=== PATIENT | male | born 1970 | race Caucasian/White ===

== ENCOUNTER 2016-11-29 17:27 | Emergency (ER) | payer MEDICAID ==
[~2016-11-29] VITALS: Ht 177.8 cm; Wt 81.6 kg
[~2016-11-29 17:27] MED LIST: CIPRO 500MG TA500 MG PO; KEFLEX 500MG.500 MG PO; NOMEDS; PROTONIX 40MG T40 MG PO; PYRIDIUM 200MG200 MG PO; ULTRAM 50 MG TA50 MG PO
--- NOTE | 2016-11-29 17:48 | Urgent Treatment Center Report ---
History of Present Issue Date/Time Seen by Provider 11/29/163 Visit Reason Pt arrived:Walked Presenting Problem:PT STATES HE WAS RIDING A HOVERBOARD WHEN HE FELL OFF AND INJURED HIS L WRIST. STATES HAPPENED APPROX 1530 TODAY Location if Accident:Home Onset of symptoms date/time:11/29/16 or onset unknown for: Have you (or family members/close friends) recently traveled outside the [place]? N If Yes, where/when: Have you had exposure to infectious disease within the past month? TB? Other? Specify: Patient states that he was trying to ride a hoverboard when he fell and landed on left wrist area. States that he has been having pain in left wrist ever since. State that it hurts when he moves his hand. Accident happened around 1500 -1530 today and state that pain in wrist area has been consistant ever since. Used ice on it at home but not much relief ALLERGIES Coded Allergies: No Known Allergies (11/29/16) Home Medications Reported Medications No Home Medications (NO HOME MEDICATIONS) History Medical History General CAD? No Angina: No [place]: No Hypertension? No Hyperlipidemia? No CHF? No DVT? No PE? No COPD? No Asthma? No Anemia? No GERD? No Gastric ulcers? Yes GI Bleed? No Hernia? No Thyroid Problems? No Hypothyroidism? No CVA? No Seizures? No Diabetes? No Renal Insuffiency? No UTI? No Stones? No BPH? No GB Disease: No Nephritic Syndrome? No Asplenia? No Hepatitis? No Sickle Cell Disease? No Arthritis? No Migraines? No Cataracts? No Glaucoma? No MRSA? No HIV? No TB? No Anxiety? No Depression? No Cancer? No Immunization HX DT/Tetanus 1-4 Years Ago Flu REFUSES Pneumonia REFUSES Surgical Hx Previous Surgery?Y SAMIRA. EYES Family History Family HX Diabetes No CAD No Hypertension No Hyperlipidemia No Cancer No TB No Social History Smoking Hx Smoker: Current Every Day Smoker Tobacco: Yes Type Cigarettes Packs/day 1 1/2 - 2 Packs Alcohol Alcohol: No Review of Systems All Other Systems Reviewed and Negative Comment Pain and swelling in left wrist after falling off hoverboard around 5894-9012 pm today. Physical Exam Vital Signs Vital Signs Date Time Temp Pulse Resp B/P Pulse O2 O2 Flow FiO2 Ox Delivery Rate 11/29 1737 97.9 74 20 126/84 98 General Appearance normal appearance, WD/WN, no apparent distress, mild distress Respiratory Status Yes: trachea midline, chest symmetrical, non tender chest. No: respiratory distress. Cardiovascular normal exam, regular rate/rhythm, no peripheral edema, no gallop Extremities normal capillary refill, swelling, Abrasions noted to left forearm, slight swelling to left wrist area, ice pack in place on wrist, good peripheral pulses no discoloration noted Neurologic alert, certified welder II-XII nml as tested, normal exam, no motor/sensory deficits, oriented x 3 Comments Patient complaining of pain in left wrist after falling off hoverboard, able to move fingers, denies numbness, pain with movement, abrasions on left forearm area, denies any other injury obtained in the fall Medical Decision Making LABS/Meds/Orders Pt receiving controlled substance in ED? No Results/Orders Orders Procedure Date/time Status WRIST-3 VIEWS-LT 11/29 1740 Active XRAY/CT/US XRAY/CT/US XRAY wrist XR interpretation by reviewed by me (discussed with ER physician) Xray Results no fracture seen, Patient refered to family doctor for Orthopedic referral, advised that if radiologist saw something different than provider, will call patient with direction Departure Departure Time of Disposition 1813 Disposition DC Home or Self Care(routine) Clinical Impression Primary Impression: Wrist sprain Qualifiers: Encounter type: initial encounter Laterality: left Qualified Code: S63.502A - Unspecified sprain of left wrist, initial encounter Condition STABLE Referrals Sary KLINE,Shawn Weller (Family): Tomorrow-Call Office See family doctor for referall to Orthopedics if needed Mike KLINE,Stephan CRAWFORD MD, CLAUDIA BLEVINS Patient Instructions DI for Wrist Sprain, How To Perform RICE (Rest, Ice, Compress, Elevate) Additional Instructions Sprain/Strain *wrist splint until cleared to take it off by family doctor or Orthopedic * Follow up with family doctor tomorrow for follow up and referral to Ortho if needed *RICE, Rest the extremity, Ice 15-20 minutes 3-4 times daily, Compress- wear the rodrigo wrap, Elevate the extremity when at rest *Rodrigo wrap is for support and help control swelling, use it except in the shower. Be sure that is not to tight but not to loose either *Elevate as discussed as much as possible to help reduce swelling and pain *Ibuprofen 600-800mg every 6-8 hours as needed for pain an inflammation. If need something more can take Tylenol in between doses of Ibuprofen to help Immediately follow up for new or worsening of symptoms, or no noticeable improvement over the nex 3-5 days Discharge Counseling Counseled pt/family regarding diagnosis, test results, medications/RX, home care, follow up needs Prescriptions Current Visit Scripts Ibuprofen (Ibuprofen 800MG) 800 MG PO QIDP PRN pain #30 TAB at 3863
[2016-11-29] MEDS ORDERED: IBUPROFEN800 MG PO (18:19)
[2016-11-29 18:24] VITALS: BP 126/84
--- NOTE | 2016-11-29 19:24 | RADIOLOGY REPORT PS360 ---
WRIST-3 VIEWS-LT COMPARISON: None HISTORY: Left ankle pain after a fall TECHNIQUE: AP lateral and oblique views FINDINGS: The distal radius and ulna appear intact. There is apparent old unfused ulnar styloid apophysis or old unfused chip fracture of the ulnar styloid. The carpal bones appear intact. The soft tissues are normal. IMPRESSION: Negative for acute fracture
== END 2016-11-29 18:24 | disposition home or self-care (01) ==
LOC: UTC 17:27
DX: S63.502A Unspecified sprain of left wrist, initial encounter (principal); V00.131A Fall from skateboard, initial encounter; Y92.89 Other specified places as the place of occurrence of the external cause

== ENCOUNTER 2016-12-16 19:32 | Emergency (ER) | payer MEDICAID ==
[~2016-12-16] VITALS: Ht 177.8 cm; Wt 90.7 kg
[~2016-12-16 19:32] MED LIST changes: +IBUPROFEN800 MG PO
--- OUTSIDE RECORDS SUMMARY | 2016-12-16 19:35 | External Medical Summary Rpt ---
Author Author , Organization [employer] Address Unknown Phone Unavailable Care Team Providers Care Escalator Installer Name Role Phone TETE DRAPER Unavailable Unavailable SEB TETE JORGE L GRIGSBYFARAZ Unavailable Unavailable [facility] Unavailable Unavailable [facility], [facility] Unavailable Unavailable [facility], [facility] SCIFRES ANG, SCIFRES Unavailable Unavailable ANG SCIFRES ANG, SCIFRES Unavailable Unavailable ANG Purpose Continuity of Care Document - 11-17-2013 through 2016 Problems Code Diagnosis DOS Provider Status 82151 PAIN IN 05-04-2014 [place] [facility] 46445 ENTHESOPATH 04-24-2014 TETE GRIGSBY Y OF UNSPECIFIED SITE 3674 [place] 11-17-2013 DENA RODRIGUEZ Procedures Procedure DOS Code Location Performer Comment RADIOLOGI 67993 [facility] ON KNEE 3 VIEWS INJ J0702 TETE [facility] BETAMETHA 4 SEB SEB SONE ACETATE & PHOSPHATE 3 MG OPHTH 00380 [facility] 4 ANG ANG XM&EVAL COMPRE NEW PT 1/> VST Encounters Encounter Start End Date Code Location Performer Type Date [facility] T OFFICE 83694 T[facility]E [facility] 4 4 SEB SEB T VISIT 15 MINUTES
--- OUTSIDE RECORDS SUMMARY | 2016-12-16 19:35 | External Medical Summary Rpt ---
Author Author RACHID Cervantes, RACHID Cervantes Organization [employer] Address Unknown Phone Unavailable
--- OUTSIDE RECORDS SUMMARY | 2016-12-16 19:35 | External Medical Summary Rpt ---
Demographics Preferred Language Sammarinese Marital Status Unknown Jain Affiliation Unknown Race Unknown Ethnic Group Unknown Author Author , Organization [employer] Address Unknown Phone Unavailable Purpose Continuity of Care Document - through 2016 Immunization No patient found.
--- OUTSIDE RECORDS SUMMARY | 2016-12-16 19:35 | External Medical Summary Rpt ---
Author Author , Organization [employer] Address Unknown Phone Unavailable Care Team Providers Care Cracking Machine Operator Name Role Phone JORGE L DRAPERFARAZ Unavailable Unavailable SEB TETE JORGE L GRIGSBYFARAZ Unavailable Unavailable SEB COLIN DANIELE, Unavailable Unavailable [facility] Unavailable Unavailable [facility], [facility] SCIFRES ANG, SCIFRES Unavailable Unavailable ANG SCIFRES ANG, SCIFRES Unavailable Unavailable ANG Purpose Continuity of Care Document - 11-17-2013 through 2016 Problems Code Diagnosis DOS Provider Status 19330 PAIN IN 05-04-2014 [place] [facility] 26440 ENTHESOPATH 04-24-2014 TETE GRIGSBY Y OF UNSPECIFIED SITE 3674 [place] 11-17-2013 SCIFRES ANG Procedures Procedure DOS Code Location Performer Comment RADIOLOGI 63812 [place] [facility] [facility] 4 [facility] DAN[facility] EXAMINATI IMAGING ON KNEE 3 ASS VIEWS INJ J0702 T[facility] BETAMETHA 4 SEB SEB SONE ACETATE & PHOSPHATE 3 MG OPHTH 92641 [facility] 4 ANG ANG XM&EVAL COMPRE NEW PT 1/> VST Encounters Encounter Start End Date Code Location Performer Type Date [facility] T OFFICE 28509 T[facility]E [facility] 4 4 SEB SEB T VISIT 15 MINUTES
--- OUTSIDE RECORDS SUMMARY | 2016-12-16 19:35 | External Medical Summary Rpt ---
Author Author , Organization [employer] Address Unknown Phone Unavailable Care Team Providers Care Nursing Services Manager Name Role Phone JORGE L DRAPERFARAZ Unavailable Unavailable SEB TETE JORGE L GRIGSBYFARAZ Unavailable Unavailable SEB COLIN DANIELE, Unavailable Unavailable COL[facility] DAN[facility]LE [facility] Unavailable Unavailable [facility], [facility] SCIFRES ANG, SCIFRES Unavailable Unavailable ANG SCIFRES ANG, SCIFRES Unavailable Unavailable ANG Purpose Continuity of Care Document - 11-17-2013 through 2016 Problems Code Diagnosis DOS Provider Status 60768 PAIN IN 05-04-2014 [place] [facility] 32122 ENTHESOPATH 04-24-2014 TETE GRIGSBY Y OF UNSPECIFIED SITE 3674 [place] 11-17-2013 SCIFRES ANG Procedures Procedure DOS Code Location Performer Comment RADIOLOGI 88224 [place] [facility] 4 [facility] DANIELE EXAMINATI IMAGING ON KNEE 3 ASS VIEWS INJ J0702 T[facility] BETAMETHA 4 SEB SEB SONE ACETATE & PHOSPHATE 3 MG OPHTH 65118 [facility] 4 ANG ANG XM&EVAL COMPRE NEW PT 1/> VST Encounters Encounter Start End Date Code Location Performer Type Date [facility] T OFFICE 99746 T[facility]E [facility] 4 4 SEB SEB T VISIT 15 MINUTES
--- OUTSIDE RECORDS SUMMARY | 2016-12-16 19:35 | External Medical Summary Rpt ---
Demographics Preferred Language Central African Marital Status Unknown Jew Affiliation Unknown Race Unknown Ethnic Group Unknown Author Author , Organization [employer] Address Unknown Phone Unavailable Purpose Continuity of Care Document - through 2016 Immunization No patient found.
--- OUTSIDE RECORDS SUMMARY | 2016-12-16 19:35 | External Medical Summary Rpt ---
Author Author , Organization [employer] Address Unknown Phone Unavailable Care Team Providers Care Warp Hand Name Role Phone TETE DRAPER Unavailable Unavailable SEB TETE JORGE L GRIGSBYFARAZ Unavailable Unavailable [facility] Unavailable Unavailable [facility], [facility] Unavailable Unavailable [facility], [facility] SCIFRES ANG, SCIFRES Unavailable Unavailable ANG SCIFRES ANG, SCIFRES Unavailable Unavailable ANG Purpose Continuity of Care Document - 11-17-2013 through 2016 Problems Code Diagnosis DOS Provider Status 74002 PAIN IN 05-04-2014 [place] [facility] 38711 ENTHESOPATH 04-24-2014 TETE GRIGSBY Y OF UNSPECIFIED SITE 3674 [place] 11-17-2013 DENA RODRIGUEZ Procedures Procedure DOS Code Location Performer Comment RADIOLOGI 78004 [facility] INC ON KNEE 3 VIEWS INJ J0702 TETE EP[facility] BETAMETHA 4 SEB SEB SONE ACETATE & PHOSPHATE 3 MG OPHTH 54299 [facility] 4 ANG ANG XM&EVAL COMPRE NEW PT 1/> VST Encounters Encounter Start End Date Code Location Performer Type Date [facility] T OFFICE 95767 T[facility]E [facility] 4 4 SEB SEB T VISIT 15 MINUTES
--- OUTSIDE RECORDS SUMMARY | 2016-12-16 19:38 | External Medical Summary Rpt ---
Author Author , Organization [employer] Address Unknown Phone Unavailable Care Team Providers Care Toggle Press Folder And Feeder Name Role Phone TETE DRAPER Unavailable Unavailable SEB TETE DRAPER Unavailable Unavailable [facility] Un[facility] Unavailable Unavailable [facility], [facility] SCIFRES ANG, SCIFRES Unavailable Unavailable ANG SCIFRES ANG, SCIFRES Unavailable Unavailable ANG Purpose Continuity of Care Document - 11-17-2013 through 2016 Problems Code Diagnosis DOS Provider Status 27657 PAIN IN 05-04-2014 [place] [facility] 91131 ENTHESOPATH 04-24-2014 TETE GRIGSBY Y OF UNSPECIFIED SITE 3674 PRESBYOP[place] 11-17-2013 SCIFRSIMON ANG Procedures Procedure DOS Code Location Performer Comment RADIOLOGI 07085 [facility] INC ON KNEE 3 VIEWS INJ J0702 TETE EP[facility] BETAMETHA 4 SEB SEB SONE ACETATE & PHOSPHATE 3 MG OPHTH 98815 [facility] 4 ANG ANG XM&EVAL COMPRE NEW PT 1/> VST Encounters Encounter Start End Date Code Location Performer Type Date [facility] T OFFICE 08706 T[facility]E [facility] 4 4 SEB SEB T VISIT 15 MINUTES
--- OUTSIDE RECORDS SUMMARY | 2016-12-16 19:38 | External Medical Summary Rpt ---
Author Author , Organization [employer] Address Unknown Phone Unavailable Care Team Providers Care Golf Superintendent Name Role Phone TETE DRAPER Unavailable Unavailable SBE TETE DRAPER Unavailable Unavailable [facility] Un[facility] Un[facility] Unavailable Unavailable [facility], [facility] SCIFRES ANG, SCIFRES Unavailable Unavailable ANG SCIFRES ANG, SCIFRES Unavailable Unavailable ANG Purpose Continuity of Care Document - 11-17-2013 through 2016 Problems Code Diagnosis DOS Provider Status 29467 PAIN IN 05-04-2014 [place] [facility] 86021 ENTHESOPATH 04-24-2014 TETE GRIGSBY Y OF UNSPECIFIED SITE 3674 [place] 11-17-2013 SCIFRSIMON ANG Procedures Procedure DOS Code Location Performer Comment RADIOLOGI 41469 [facility] INC ON KNEE 3 VIEWS INJ J0702 TETE EP[facility] BETAMETHA 4 SEB SEB SONE ACETATE & PHOSPHATE 3 MG OPHTH 00157 [facility] 4 ANG ANG XM&EVAL COMPRE NEW PT 1/> VST Encounters Encounter Start End Date Code Location Performer Type Date [facility] T OFFICE 19589 T[facility] 4 4 SEB SEB T VISIT 15 MINUTES
--- OUTSIDE RECORDS SUMMARY | 2016-12-16 19:39 | External Medical Summary Rpt ---
Author Author , Organization [employer] Address Unknown Phone Unavailable Care Team Providers Care Diplomatic Officer Name Role Phone TETE DRAPER Unavailable Unavailable SEB TETE JORGE L GRIGSBYFARAZ Unavailable Unavailable [facility] Unavailable Unavailable [facility], [facility] Unavailable Unavailable [facility], [facility] SCIFRES ANG, SCIFRES Unavailable Unavailable ANG SCIFRES ANG, SCIFRES Unavailable Unavailable ANG Purpose Continuity of Care Document - 11-17-2013 through 2016 Problems Code Diagnosis DOS Provider Status 80173 PAIN IN 05-04-2014 [place] [facility] 97202 ENTHESOPATH 04-24-2014 TETE GRIGSBY Y OF UNSPECIFIED SITE 3674 PRES[place]OP[place] 11-17-2013 DENA RODRIGUEZ Procedures Procedure DOS Code Location Performer Comment RADIOLOGI 37176 [facility] INC ON KNEE 3 VIEWS INJ J0702 TETE EPSTEIN BETAMETHA 4 SEB SEB SONE ACETATE & PHOSPHATE 3 MG OPHTH 62695 [facility] 4 ANG ANG XM&EVAL COMPRE NEW PT 1/> VST Encounters Encounter Start End Date Code Location Performer Type Date [facility] T OFFICE 46581 T[facility]E [facility]PAT[facility] 4 4 SEB SEB T VISIT 15 MINUTES
--- OUTSIDE RECORDS SUMMARY | 2016-12-16 19:39 | External Medical Summary Rpt ---
Demographics Preferred Language Guyanese Marital Status Unknown Samaritan Affiliation Unknown Race Unknown Ethnic Group Unknown Author Author , Organization [employer] Address Unknown Phone Unavailable Purpose Continuity of Care Document - through 2016 Immunization No patient found.
--- OUTSIDE RECORDS SUMMARY | 2016-12-16 19:39 | External Medical Summary Rpt ---
Demographics Preferred Language Portuguese Marital Status Unknown Jain Affiliation Unknown Race Unknown Ethnic Group Unknown Author Author , Organization [employer] Address Unknown Phone Unavailable Purpose Continuity of Care Document - through 2016 Immunization No patient found.
--- OUTSIDE RECORDS SUMMARY | 2016-12-16 19:39 | External Medical Summary Rpt ---
Author Author , Organization [employer] Address Unknown Phone Unavailable Care Team Providers Care Frame Straightener Name Role Phone TETE DRAPER Unavailable Unavailable SEB TETE JORGE L GRIGSBYFARAZ Unavailable Unavailable [facility] Unavailable Unavailable INC, [facility] Unavailable Unavailable [facility], [facility] SCIFRES ANG, SCIFRES Unavailable Unavailable ANG SCIFRES ANG, SCIFRES Unavailable Unavailable ANG Purpose Continuity of Care Document - 11-17-2013 through 2016 Problems Code Diagnosis DOS Provider Status 71027 PAIN IN 05-04-2014 [place] [facility] 38653 ENTHESOPATH 04-24-2014 TETE GRIGSBY Y OF UNSPECIFIED SITE 3674 PRESBYOP[place] 11-17-2013 DENA RODRIGUEZ Procedures Procedure DOS Code Location Performer Comment RADIOLOGI 85858 [facility] INC ON KNEE 3 VIEWS INJ J0702 TETE EPSTEIN BETAMETHA 4 SEB SEB SONE ACETATE & PHOSPHATE 3 MG OPHTH 52949 [facility] 4 ANG ANG XM&EVAL COMPRE NEW PT 1/> VST Encounters Encounter Start End Date Code Location Performer Type Date [facility] - [facility] T OFFICE 78876 T[facility]E [facility] OUTPAT[facility] 4 4 SEB SEB T VISIT 15 MINUTES
--- NOTE | 2016-12-16 20:17 | Urgent Treatment Center Report ---
History of Present Issue Date/Time Seen by Provider 12/16/161958 Visit Reason Pt arrived:Walked Presenting Problem:PT C/O LEFT FOOT PAIN AFTER DROPPING A FENCE POST ON IT Location if Accident:Home Onset of symptoms date/time:/ or onset unknown for:MEDICAL HX UNKNOWN Have you (or family members/close friends) recently traveled outside the [place]? N If Yes, where/when: Have you had exposure to infectious disease within the past month? TB? Other? Specify: Patient was moving some fence posts when they slipped and rolled off the trailer and landed on his left foot. States that he instantly had pain, now having swelling, pain and bruising to the area. States that he came on in to get checked out and see what was going on ALLERGIES Coded Allergies: No Known Allergies (11/29/16) Home Medications Active Scripts Ibuprofen (Ibuprofen 800MG) 800 MG PO QIDP PRN pain #30 TAB Prov: 11/29/16 Reported Medications No Home Medications (NO HOME MEDICATIONS) History Medical History General CAD? No Angina: No [place]: No Hypertension? No Hyperlipidemia? No CHF? No DVT? No PE? No COPD? No Asthma? No Anemia? No GERD? No Gastric ulcers? Yes GI Bleed? No Hernia? No Thyroid Problems? No Hypothyroidism? No CVA? No Seizures? No Diabetes? No Renal Insuffiency? No UTI? No Stones? No BPH? No GB Disease: No Nephritic Syndrome? No Asplenia? No Hepatitis? No Sickle Cell Disease? No Arthritis? No Migraines? No Cataracts? No Glaucoma? No MRSA? No HIV? No TB? No Anxiety? No Depression? No Cancer? No Immunization HX DT/Tetanus 1-4 Years Ago Flu REFUSES Pneumonia REFUSES Surgical Hx Previous Surgery?Y SAMIRA. EYES Family History Family HX Diabetes No CAD No Hypertension No Hyperlipidemia No Cancer No TB No Social History Smoking Hx Smoker: Current Every Day Smoker Tobacco: Yes Type Cigarettes Packs/day 1 1/2 - 2 Packs Alcohol Alcohol: No Review of Systems All Other Systems Reviewed and Negative Comment Pain bruising and mild swelling to left foot after fence posts rolled off a trailor and landed on his left foot Physical Exam Vital Signs Vital Signs Date Time Temp Pulse Resp B/P Pulse O2 O2 Flow FiO2 Ox Delivery Rate 05/03 1949 98.8 79 18 152/95 99 General Appearance normal appearance, WD/WN Respiratory Status Yes: trachea midline, chest symmetrical, non tender chest. No: respiratory distress. Cardiovascular normal exam, regular rate/rhythm, no peripheral edema, no gallop Extremities swelling, Swelling, contusion and pain to top of left foot after fence post rolled off hauling trailer and landed on his left foot Neurologic alert, can operator II-XII nml as tested, normal exam, no motor/sensory deficits, oriented x 3 Comments Patient having pain and swelling in left foot after fence posts fell and landed on his left foot. Medical Decision Making LABS/Meds/Orders Pt receiving controlled substance in ED? No Results/Orders Orders Procedure Date/time Status FOOT-LT-3 VIEWS 12/16 1942 Active Departure Departure Time of Disposition 2031 Disposition DC Home or Self Care(routine) Clinical Impression Primary Impression: Foot injury Qualifiers: Encounter type: initial encounter Laterality: left Qualified Code: S99.922A - Unspecified injury of left foot, initial encounter Condition STABLE Referrals Sary KLINE,Shawn Weller (Family): 3 Days-Call Office if no improvement or worsening of symptoms Patient Instructions How To Perform RICE (Rest, Ice, Compress, Elevate), Ibuprofen Additional Instructions *RICE, Rest the extremity, Ice 15-20 minutes 3-4 times daily, Compress- wear the rodrigo wrap, Elevate the extremity when at rest *Rodrigo wrap is for support and help control swelling, use it except in the shower. Be sure that is not to tight but not to loose either *Elevate as discussed as much as possible to help reduce swelling and pain *Ibuprofen 600-800mg every 6-8 hours as needed for pain an inflammation. If need something more can take Tylenol in between doses of Ibuprofen to help Immediately follow up for new or worsening of symptoms, or no noticeable improvement over the nex 3-5 days Follow up with family doctor Return if needed Discharge Counseling Counseled pt/family regarding diagnosis, test results, home care, follow up needs at 2035
[2016-12-16 20:37] VITALS: BP 152/95
--- NOTE | 2016-12-17 05:22 | RADIOLOGY REPORT PS360 ---
FOOT-LT-3 VIEWS HISTORY: Post traumatic pain DROPPED FENCE POST ON LEFT FOOT ORDERING PHYSICIAN: Alvarez Jacobo MD PATIENT AGE: 46 years COMPARISON: None FINDINGS: No fracture or dislocation. No lytic or blastic change. There is normal mineralization.. Mild osteoarthritic change first metatarsophalangeal joint There is a small density projecting over the lateral aspect of the PIP joint of the fifth digit measuring approximately 1 to 2 mm and could represent a foreign body upon or within the soft tissues. IMPRESSION: 1. No acute fracture. 2. Possible small foreign body at the fifth digit PIP region
== END 2016-12-16 20:40 | disposition home or self-care (01) ==
LOC: UTC 19:32
DX: S99.922A Unspecified injury of left foot, initial encounter (principal); Z72.0 Tobacco use; W20.8XXA Other cause of strike by thrown, projected or falling object, initial encounter; Y92.9 Unspecified place or not applicable